=== PATIENT | male | born 1995 | race African-American/Black ===

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

== ENCOUNTER 2018-01-26 15:41 | Emergency (ER) | payer MEDICAID ==
[~2018-01-26] VITALS: Ht 175.3 cm; Wt 72.6 kg
[2018-01-26 15:57] VITALS: BP 123/76; Ht 175.3 cm; Wt 72.6 kg
[2018-01-29 05:11] LABS: RAPID PLASMA REAGIN Non Reactive (Non Reactive)
== END 2018-01-26 17:28 | disposition home or self-care (01) ==
LOC: ED 15:41
PROVIDERS: Emergency Medicine
DX: F12.10 Cannabis abuse, uncomplicated (principal); R30.9 Painful micturition, unspecified
CPT/HCPCS: 87491; 87591; J0696

== ENCOUNTER 2018-03-12 18:27 | Emergency (ER) | payer MEDICAID ==
[~2018-03-12] VITALS: Ht 175.3 cm; Wt 71.3 kg
[2018-03-12 18:37] VITALS: Ht 175.3 cm; Wt 71.3 kg
[2018-03-12 21:00] VITALS: BP 118/64
[2018-03-15 06:26] LABS: RAPID PLASMA REAGIN Non Reactive (Non Reactive)
== END 2018-03-12 21:00 | disposition home or self-care (01) ==
LOC: ED 18:27
PROVIDERS: Specialist
DX: Z11.3 Encounter for screening for infections with a predominantly sexual mode of transmission (principal)
CPT/HCPCS: 86694; 87491; 87591

== ENCOUNTER 2018-12-21 08:53 | Emergency (ER) | payer SELFPAY ==
[~2018-12-21] VITALS: Ht 175.3 cm; Wt 71.7 kg
[2018-12-21 08:57] VITALS: Ht 175.3 cm; Wt 71.7 kg
[2018-12-21 11:26] LABS: microscopic required? NO
[2018-12-21 11:31] VITALS: BP 120/68
[2018-12-21 11:36] LABS: urine erythrocyte NEGATIVE (NEGATIVE)
== END 2018-12-21 11:31 | disposition home or self-care (01) ==
LOC: ED 08:53
PROVIDERS: Emergency Medicine
DX: N34.2 Other urethritis (principal); Z88.5 Allergy status to narcotic agent
CPT/HCPCS: 87491; 87591; Q0092